=== PATIENT | female | born 1975 | race Hispanic/Latino ===

== ENCOUNTER 2018-12-04 20:43 | Observation (INO) | payer BC, MEDICAID ==
[~2018-12-04] VITALS: Ht 154.9 cm; Wt 72.1 kg
[2018-12-04 21:41] LABS: APPEARANCE,URINE Clear (CLEAR); BILIRUBIN,URINE Negative (NEGATIVE); COLOR,URINE Yellow (YELLOW); GLUCOSE, URINE (UA) Negative (NEGATIVE); KETONES,URINE Trace mg/dL (NEGATIVE); LEUKOCYTE ESTERASE ,URINE Trace (NEGATIVE); NITRATE,URINE Negative (NEGATIVE); OCCULT BLOOD,URINE Negative (NEGATIVE); PH,URINE 5.5 (5.0-8.0); PROTEIN,URINE Negative (NEGATIVE)
[2018-12-04 21:49] LABS: BACTERIA,URINE Few /HPF (None Seen); RBC,URINE 0-1 /HPF (0-1); SQUAMOUS EPITHELIAL CELL,UR Few /HPF (0-2)
== END 2018-12-04 22:30 | disposition home or self-care (01) ==
LOC: EDH 20:43 → LDH 20:44
PROVIDERS: ADMIT Obstetrics & Gynecology; ATTEND Obstetrics & Gynecology
DX: O62.9 Abnormality of forces of labor, unspecified (principal); Z90.89 Acquired absence of other organs; Z87.891 Personal history of nicotine dependence; Z3A.17 17 weeks gestation of pregnancy
CPT/HCPCS: 81001; 99284; G0378 ×2

== ENCOUNTER 2019-02-10 22:07 | Observation (INO) | payer BC, MEDICAID ==
[~2019-02-10] VITALS: Ht 154.9 cm; Wt 74.8 kg
[2019-02-10] MEDS ORDERED: PREN-196 PO (22:22)
[2019-02-10 22:40] LABS: APPEARANCE,URINE Clear (CLEAR); BILIRUBIN,URINE Negative (NEGATIVE); COLOR,URINE Yellow (YELLOW); GLUCOSE, URINE (UA) Negative (NEGATIVE); KETONES,URINE Negative (NEGATIVE); LEUKOCYTE ESTERASE ,URINE Negative (NEGATIVE); NITRATE,URINE Negative (NEGATIVE); OCCULT BLOOD,URINE Negative (NEGATIVE); PH,URINE 6.5 (5.0-8.0); PROTEIN,URINE Negative (NEGATIVE)
[2019-02-10] MEDS ORDERED: TERBUTALINE SULFATE VIAL 1MG/ML SQ ONE (23:30)
[2019-02-10] MEDS ORDERED: ACETAMINOPHEN EXTRA STRENGTH 500 MG TABLET PO ONE (23:30)
[2019-02-11] MEDS: LACTATED RINGERS 1000ML 1,000 ML IV SCH ×2 (00:19→04:59)
[2019-02-11] MEDS ORDERED: PROMETHAZINE HCL 25 MG/ML 1ML AMPULE IM PRN (01:45)
[2019-02-11] MEDS ORDERED: MEPERIDINE-PF 50 MG/ML SYG IVP PRN (01:45)
[2019-02-11] MEDS ORDERED: MEPERIDINE-PF 50 MG/ML SYG ONE (01:53)
[2019-02-11] MEDS ORDERED: PHARMACY COMMUNICATION MISC SCH (08:45)
[2019-02-11] MEDS ORDERED: ACETAMINOPHEN 325 MG TAB PO PRN (08:45)
[2019-02-11] MEDS ORDERED: CELESTONE SOLUSPAN 6 MG/ML 5ML VIAL IM SCH (09:00)
== END 2019-02-11 10:04 | disposition home or self-care (01) ==
LOC: EDH 22:07 → LDH 22:08
PROVIDERS: ADMIT Obstetrics & Gynecology; ATTEND Obstetrics & Gynecology
DX: O26.892 Other specified pregnancy related conditions, second trimester (principal); R10.12 Left upper quadrant pain; R05 Cough; Z87.891 Personal history of nicotine dependence; O09.523 Supervision of elderly multigravida, third trimester; Z3A.26 26 weeks gestation of pregnancy
CPT/HCPCS: 76805; 81003; 96372 ×2; 99283; G0378 ×12; J0702; J2175; J3105; J7120 ×2; 96360; 96361

== ENCOUNTER 2019-02-12 08:53 | Observation (INO) | payer BC, MEDICAID ==
[~2019-02-12 08:53] MED LIST: PREN-196 PO
== END 2019-02-12 09:32 | disposition home or self-care (01) ==
LOC: LDH 08:53
PROVIDERS: ADMIT Obstetrics & Gynecology; ATTEND Obstetrics & Gynecology
DX: Z34.90 Encounter for supervision of normal pregnancy, unspecified, unspecified trimester (principal); Z3A.00 Weeks of gestation of pregnancy not specified
CPT/HCPCS: 96372; G0378

== ENCOUNTER 2019-04-19 17:51 | Observation (INO) | payer BC, MEDICAID ==
[~2019-04-19] VITALS: Ht 154.9 cm; Wt 73.5 kg
[2019-04-19 18:30] LABS: BASOPHILS % (AUTO) 2.1 % (0.0-5.0); EOSINOPHILS % (AUTO) 0.8 % (0.0-8.0); LYMPHOCYTES % (AUTO) 17.7 % (21.0-51.0); MEAN CORPUSCULAR HEMOGLOBIN 29.9 pg (27.0-33.0); MEAN CORPUSCULAR HGB CONC 35.2 g/dL (32.0-36.0); MONOCYTES % (AUTO) 7.8 % (3.0-13.0); NEUTROPHILS % (AUTO) 71.6 % (40.0-77.0); NUCLEATED RED BLOOD CELLS 0.1 % (0.0-0.19); PLATELET COUNT (AUTO) 151 K/uL (130-400); RED BLOOD CELL COUNT(AUTO) 3.89 MIL/uL (4.00-5.50); RED CELL DISTRIBUTION WIDTH 13.4 % (11.0-15.5); WHITE BLOOD COUNT (AUTO) 7.1 K/uL (4.8-10.8)
[2019-04-19 18:41] LABS: CREATININE 0.6 mg/dL (0.5-1.5); POTASSIUM 3.8 mmol/L (3.5-5.1)
[2019-04-19 18:46] LABS: APPEARANCE,URINE Clear (CLEAR); BILIRUBIN,URINE Negative (NEGATIVE); COLOR,URINE Yellow (YELLOW); GLUCOSE, URINE (UA) Negative (NEGATIVE); KETONES,URINE Negative (NEGATIVE); LEUKOCYTE ESTERASE ,URINE Negative (NEGATIVE); NITRATE,URINE Negative (NEGATIVE); OCCULT BLOOD,URINE Negative (NEGATIVE); PROTEIN,URINE Negative (NEGATIVE)
[2019-04-19] MEDS ORDERED: LACTATED RINGERS 1000ML IV PRN (20:00)
[2019-04-19] MEDS ORDERED: PREN1TAB80 PO (20:19)
[2019-04-19 21:31] LABS: AMPHET/METH SCREEN,URINE NEGATIVE (NEGATIVE); BARBITURATE SCREEN, URINE NEGATIVE (NEGATIVE); BENZODIAZEPINES SCREEN,URINE NEGATIVE (NEGATIVE); CANNABINOID SCREEN,URINE NEGATIVE (NEGATIVE); COCAINE SCREEN,URINE NEGATIVE (NEGATIVE); OPIATE SCREEN,URINE NEGATIVE (NEGATIVE); PHENCYCLIDINE SCREEN,URINE NEGATIVE (NEGATIVE)
== END 2019-04-19 22:35 | disposition home or self-care (01) ==
LOC: EDH 17:51 → LDH 19:39
PROVIDERS: ADMIT Obstetrics & Gynecology; ATTEND Obstetrics & Gynecology
DX: O26.893 Other specified pregnancy related conditions, third trimester (principal); O09.523 Supervision of elderly multigravida, third trimester; O62.9 Abnormality of forces of labor, unspecified; R55 Syncope and collapse; R53.1 Weakness; Z87.891 Personal history of nicotine dependence; Z90.49 Acquired absence of other specified parts of digestive tract; Z3A.36 36 weeks gestation of pregnancy
CPT/HCPCS: 36415; 80048; 80305; 81003; 85025; 99284; G0378 ×3; 96360; 96361

== ENCOUNTER 2019-04-28 09:04 | Inpatient (IN) | payer BC, MEDICAID ==
[~2019-04-28] VITALS: Ht 154.9 cm; Wt 73.9 kg
[~2019-04-28 09:04] MED LIST changes: +PREN1TAB80 PO
[2019-04-28 09:58] LABS: HEMATOCRIT 33.5 % (36-48); MEAN CORPUSCULAR HEMOGLOBIN 29.4 pg (27.0-33.0); MEAN CORPUSCULAR HGB CONC 34.4 g/dL (32.0-36.0); MEAN CORPUSCULAR VOLUME 85.5 fL (79-99); PLATELET COUNT (AUTO) 156 K/uL (130-400); RED BLOOD CELL COUNT(AUTO) 3.92 MIL/uL (4.00-5.50); RED CELL DISTRIBUTION WIDTH 13.3 % (11.0-15.5); WHITE BLOOD COUNT (AUTO) 7.5 K/uL (4.8-10.8)
[2019-04-28] MEDS ORDERED: NALOXONE HCL 0.4 MG/1 ML ML IV PRN (10:15)
[2019-04-28] MEDS ORDERED: EPHEDRINE SULFATE 50 MG/ML AMPULE IVP PRN (10:15)
[2019-04-28] MEDS ORDERED: OXYTOCIN-LR 20 UNITS/1000 ML 1,000 ML IV SCH ×2 (10:15)
[2019-04-28] MEDS ORDERED: OXYTOCIN 10 USP UNITS/ML 20 UNIT in LACTATED RINGERS 1000ML 1,000 ML IV SCH (10:15)
[2019-04-28] MEDS ORDERED: LACTATED RINGERS 500 ML 500 ML IV PRN (10:15)
[2019-04-28] MEDS ORDERED: BUTORPHANOL TARTRATE 2 MG/ML IVP PRN (10:15)
[2019-04-28] MEDS ORDERED: ROPIVACAINE 0.2% 100ML VIAL 100 ML EP SCH (10:15)
[2019-04-28] MEDS: LACTATED RINGERS 1000ML 1,000 ML IV PRN ×2 (10:39→16:51)
[2019-04-28] MEDS ORDERED: FENTANYL CITRATE PF 50 MCG/1 ML 2ML VIAL ONE (11:08)
[2019-04-28] MEDS ORDERED: DIPH,PERTUSS(ACELL),TET VAC/PF 0.5 ML VIAL IM PRN (13:15)
[2019-04-28] MEDS ORDERED: WITCH HAZEL 1 PAD TP PRN (13:15)
[2019-04-28] MEDS ORDERED: BENZOCAINE/LANOLIN/ALOE VERA 60 ML AEROSOL TP PRN (13:15)
[2019-04-28] MEDS ORDERED: ACETAMINOPHEN 325 MG TAB PO PRN (13:15)
[2019-04-28] MEDS ORDERED: ACETAMINOPHEN-CODEINE 300/30MG TAB PO PRN (13:15)
[2019-04-28] MEDS ORDERED: LANOLIN 30GM OINTMENT TP PRN (13:15)
[2019-04-28] MEDS ORDERED: MEASLES/MUMPS/RUBELLA VACCINE, LIVE 0.5 ML/VIAL SQ PRN (13:15)
[2019-04-28] MEDS ORDERED: IBUPROFEN 600 MG TABLET ONE (13:19)
[2019-04-28 15:12] LABS: APPEARANCE,URINE Clear (CLEAR); BILIRUBIN,URINE Negative (NEGATIVE); COLOR,URINE Yellow (YELLOW); GLUCOSE, URINE (UA) Negative (NEGATIVE); KETONES,URINE 40 mg/dL (NEGATIVE); LEUKOCYTE ESTERASE ,URINE Negative (NEGATIVE); NITRATE,URINE Negative (NEGATIVE); OCCULT BLOOD,URINE Moderate (NEGATIVE); PH,URINE 6.5 (5.0-8.0); PROTEIN,URINE Trace mg/dL (NEGATIVE)
[2019-04-28 15:20] LABS: BACTERIA,URINE Few /HPF (None Seen); MUCUS,URINE Few LPF (None Seen)
--- NOTE | 2019-04-28 15:30 | NUR ---
PT ORIENTED TO ROOM. FUNDUS IS FIRM AT UMBILICUS, BLEEDING IS SCANT. LANOLIN GIVEN AND EXPLAINED TO PATIENT. PT VOICED UNDERSTANDING. ADVISED PT TO CALL WHEN AMBULATING FOR THE FIRST TIME. CALL LIGHT LEFT IN REACH.
[2019-04-28 15:49] VITALS: BP 129/79
[2019-04-28 20:00] VITALS: BP 124/64
[2019-04-28] MEDS: DOCUSATE SODIUM 100 MG CAP PO SCH (20:43)
[2019-04-28 23:00] VITALS: BP 110/60
[2019-04-29 03:10] VITALS: BP 101/65
[2019-04-29] MEDS: IBUPROFEN 600 MG TABLET PO PRN ×2 (03:17→09:05)
[2019-04-29 07:45] VITALS: BP 129/79
[2019-04-29 08:12] LABS: HEPATITIS Bs ANTIGEN SCREEN P Negative (Negative)
[2019-04-29] MEDS: DOCUSATE SODIUM 100 MG CAP PO SCH (09:04)
[2019-04-29] MEDS: LACTATED RINGERS 1000ML 1,000 ML IV PRN (10:16)
[2019-04-29 11:20] VITALS: BP 135/80
--- NOTE | 2019-04-29 14:25 | NUR ---
PT LEFT UNIT VIA WHEELCHAIR WITH BABY IN ARMS. BABY SECURED IN CARSEAT. PERSONAL VEHICLE USED FOR TRANSPORTATION. NO COMPLAINTS OR CONCERNS ADDRESSED FROM PT ON DISCHARGE.
== END 2019-04-29 14:25 | disposition home or self-care (01) | DRG 807 ==
LOC: EDH 09:04 → LDH 09:05 → OBSVTOIN 09:05 → WSH 15:30
PROVIDERS: ADMIT Obstetrics & Gynecology; ATTEND Obstetrics & Gynecology
PROC: 10E0XZZ Delivery of Products of Conception, External Approach (ICD-10-PCS; principal; 2019-04-28)
PROC: 3E0234Z Introduction of Serum, Toxoid and Vaccine into Muscle, Percutaneous Approach (ICD-10-PCS; 2019-04-28)
PROC: 3E0134Z Introduction of Serum, Toxoid and Vaccine into Subcutaneous Tissue, Percutaneous Approach (ICD-10-PCS; 2019-04-28)
DX: O80 Encounter for full-term uncomplicated delivery (principal); Z37.0 Single live birth; Z3A.37 37 weeks gestation of pregnancy; Z23 Encounter for immunization
CPT/HCPCS: 36415; 81001; 85027; 86592; 86850; 86900; 86901; 87340; 90715; A4314; A4606; G0378; J2590; J2795; J3010; J7120